=== PATIENT | male | born 1965 | race Caucasian/White ===

== ENCOUNTER 2017-02-15 10:00 | Emergency (ER) | payer OTHER ==
[2017-02-15] MEDS ORDERED: KETOROLAC 60 MG/2 ML VIAL IM STA (12:03)
[2017-02-15] MEDS ORDERED: DEXAMETHASONE 10 MG/ML VIAL PO STA (12:03)
[2017-02-15] MEDS ORDERED: CYCLOBENZAPRINE 10 MG TABLET PO STA (12:03)
[2017-02-15] MEDS ORDERED: oxyCOD/ACETAMIN 5 MG/325 MG TABLET PO STA (12:12)
--- NOTE | 2017-02-15 12:15 | ED Physician Documentation ---
PD HPI BACK PAIN - Stated complaint Stated Complaint: BACK PX - Chief complaint Chief Complaint: Back Pain - History obtained from History obtained from: Patient, Family - History of Present Illness Timing - onset: How many days ago (3) Timing - duration: Days (3) Timing - details: Gradual onset Pain level max: 8 Pain level now: 8 Location: Lower, Right Quality: Pain, Spasm, Similar to prior episodes Associated symptoms: No: Fever, Weakness, Numbness, Incontinent of urine, Unable to urinate, Hematuria, Incontinent of stool Improves with: Rest Worsened by: Movement Contributing factors: Other (states history of chronic back pain. 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 states pain started when reaching for a cheese grater) Recently seen: Not recently seen - Additional information Additional information: taking motrin without relief. Review of Systems Ten Systems: 10 systems reviewed and negative Constitutional: denies: Fever, Chills Ears: denies: Ear pain Nose: denies: Rhinorrhea / runny nose, Congestion Throat: denies: Sore throat Cardiac: denies: Chest pain / pressure Respiratory: denies: Cough GI: denies: Abdominal Pain, Nausea, Vomiting, Diarrhea Skin: denies: Rash Musculoskeletal: denies: Neck pain Neurologic: denies: Focal weakness, Numbness, Headache PD PAST MEDICAL HISTORY - Past Medical History Past Medical History: No - Past Surgical History Past Surgical History: No - Present Medications Home Medications: Ambulatory Orders Medication Instructions Recorded Confirmed Cyclobenzaprine [Flexeril] 10 mg PO TID PRN #20 tablet 02/15/17 Hydrocodone/Acetaminophen 1 - 2 each PO Q6H PRN #14 tablet 02/15/17 [Hydrocodon-Acetaminophen 5-325] Meloxicam [Mobic] 7.5 mg PO BID PRN #20 tablet 02/15/17 - Allergies Allergies/Adverse Reactions: Allergies Allergy/AdvReac Type Severity Reaction Status Date / Time No Known Drug Allergies Allergy Verified 02/15/17 10:20 - Social History Does the pt smoke?: No Smoking Status: Never smoker Does the pt drink ETOH?: Yes ETOH Use: Wine, Beer Does the pt have substance abuse?: No - Immunizations Immunizations are current?: Yes - POLST Patient has POLST: No PD ED PE NORMAL - Vitals Vital signs reviewed: Yes - General General: Alert and oriented X 3, No acute distress - HEENT HEENT: PERRL, Moist mucous membranes - Neck Neck: Supple, no meningeal sign - Cardiac Cardiac: RRR, Strong equal pulses - Respiratory Respiratory: No respiratory distress, Clear bilaterally - Abdomen Abdomen: Soft, Non tender, Non distended - Back Back: Other (no midline tenderness. Paraspinal tenderness R low lumbar. ) - Derm Derm: Warm and dry - Extremities Extremities: Other (normal bilateral lower extremity patellar and ankle jerk reflexes. Normal great toe extension bilaterally) - Neuro Neuro: Alert and oriented X 3, No motor deficit, No sensory deficit - Psych Psych: Normal mood, Normal affect Results - Vitals Vitals: Vital Signs - 24 hr 02/15/17 02/15/17 10:03 12:35 Temperature 36.3 C L 36.7 C Heart Rate 76 56 L Respiratory 20 18 Rate Blood Pressure 106/59 L 104/69 O2 Saturation 99 100 Oxygen O2 Source Room air PD MEDICAL DECISION MAKING - ED course Complexity details: re-evaluated patient, considered differential (no cauda equina, no spinal epidural abscess, no fracture, no aortic dissection or evidence of aneursym rupture), d/w patient, d/w family () ED course: Patient is a 51-year-old male who presents to the emergency department with acute on chronic back pain. He has been taking Motrin without relief at home. Given Toradol, Flexeril, Percocet and dexamethasone here. Will prescribe pain medication and muscle relaxants for home and follow-up with his doctor. No IV drug use. No evidence of epidural abscess. No evidence of fracture. No evidence of cauda equina. Patient counseled regarding signs and symptoms for which I believe and urgent re-evaluation would be necessary. Patient with good understanding of and agreement to plan and is comfortable going home at this time This document was made in part using voice recognition software. While efforts are made to proofread this document, sound alike and grammatical errors may occur. Departure - Departure Disposition: Home, Self Care Clinical Impression: Low back strain Qualifiers: Encounter type: initial encounter Qualified Code(s): S39.012A - Strain of muscle, fascia and tendon of lower back, initial encounter Condition: Good Instructions: ED Sprain Strain Lumbar Follow-Up: Faisal Miranda MD [Primary Care Provider] - Within 1 week Prescriptions: Cyclobenzaprine [Flexeril] 10 mg PO TID PRN #20 tablet PRN Reason: Spasms Hydrocodone/Acetaminophen [Hydrocodon-Acetaminophen 5-325] 1 - 2 each PO Q6H PRN #14 tablet PRN Reason: pain Meloxicam [Mobic] 7.5 mg PO BID PRN #20 tablet PRN Reason: Pain Comments: Continue the medications at home. Return if you worsen. This should improve over the next few days. You can use ice or heat as needed as well. Do not drink alcohol or drive while on narcotic pain medicine. Note that many narcotic pain relievers also contain tylenol/acetaminophen. Please ensure that your total dose of acetaminophen from all sources does not exceed 3 grams (3000mg) per day. You may constipated on this medication, take a stool softener such as "Colace" twice a day while you are on it. Also recommend a [id number] laxative such as senna or MiraLAX any day that you do not have a bowel movement. If you received narcotic pain medication in the emergency department, do not drive or operate machinery for the next 24 hours. Discharge Date/Time: 02/15/17 12:47
[2017-02-15 12:36] VITALS: BP 104/69
== END 2017-02-15 12:47 | disposition home or self-care (01) ==
LOC: ED 10:00
DX: S39.012A Strain of muscle, fascia and tendon of lower back, initial encounter (principal); X50.9XXA Other and unspecified overexertion or strenuous movements or postures, initial encounter
CPT/HCPCS: 96372; 99283; A9270

== ENCOUNTER 2017-02-17 15:02 | Outpatient (CLI) | payer OTHER | END 2017-02-17 15:03 | disposition home or self-care (01) | LOC: LAB.WCP 15:02 | PROVIDERS: ATTEND Family Medicine | DX: Z12.5 Encounter for screening for malignant neoplasm of prostate (principal) | CPT/HCPCS: 36415; 84153 ==

== ENCOUNTER 2017-08-17 12:58 | Day surgery (SDC) | payer OTHER ==
[2017-08-17] MEDS ORDERED: LACTATED RINGERS 1,000 ML IV ONE ×2 (13:09→16:07)
[2017-08-17] MEDS ORDERED: MIDAZOLAM 2 MG/2 ML VIAL IVP ONE (15:31)
[2017-08-17] MEDS ORDERED: fentaNYL 250 MCG/5 ML VIAL IVP ONE (15:31)
[2017-08-17 16:21] VITALS: BP 108/59
== END 2017-08-17 12:59 | disposition home or self-care (01) ==
LOC: SDS 12:58
PROVIDERS: ATTEND Surgery
PROC: 0DJD8ZZ Inspection of Lower Intestinal Tract, Via Natural or Artificial Opening Endoscopic (ICD-10-PCS; principal; 2017-08-17 15:00)
DX: Z12.11 Encounter for screening for malignant neoplasm of colon (principal); Z87.891 Personal history of nicotine dependence
CPT/HCPCS: 45378; J3010; J7120

== ENCOUNTER 2019-02-24 11:55 | Outpatient (CLI) | payer OTHER ==
--- NOTE | 2019-02-24 13:13 | XRAY Report ---
Reason: SEGMENTAL AND SOMATIC DYSFUNCTION OF [place]CR[place] REGION Procedure Date: 02/24/2019 Accession Number: [id number] / [id number] Procedure: XR - Lumbar Spine 2 View CPT Code: Final Report FULL RESULT: EXAM: LUMBOSACRAL SPINE RADIOGRAPHY EXAM DATE: 02/24/2019 12:41 PM. CLINICAL HISTORY: SEGMENTAL AND SOMATIC DYSFUNCTION OF [place] REGION. COMPARISONS: None. TECHNIQUE: 2 views. FINDINGS: Alignment: No significant spondylolisthesis or scoliosis. Bones: No fracture or bone lesion. 5 elu-zqk-paflqsm lumbar elements present. Disks: No significant disk space loss evident. Small anterior and lateral osteophytes developing at the L1-L4 levels. Facets: No degenerative changes. Sacroiliac Joints: Unremarkable. Soft Tissues: Normal. The visualized bowel gas pattern is normal. IMPRESSION: 1. Early L1-L4 degenerative disk disease without disk space loss. 2. No fracture or bone lesion. RADIA
== END 2019-02-24 11:56 | disposition home or self-care (01) ==
LOC: DI 11:55
PROVIDERS: ATTEND Chiropractor
DX: M51.36 Other intervertebral disc degeneration, lumbar region (principal)
CPT/HCPCS: 72100

== ENCOUNTER 2019-08-23 08:31 | Emergency (ER) | payer OTHER ==
[2019-08-23 08:43] VITALS: BP 123/65
--- NOTE | 2019-08-23 09:06 | ED Physician Documentation ---
PD HPI UPPER EXT INJURY - Stated complaint Stated Complaint: R HAND INJURY - Chief complaint Chief Complaint: Ext Problem - History obtained from History obtained from: Patient, Family - History of Present Illness Location: Right, Hand Type of injury: Puncture wound Where injury occurred: Work Timing - onset: How many days ago (2) Timing - duration: Days (2) Timing - details: Abrupt onset, Still present Improved by: Rest, Immobilization Worsened by: Moving, Palpating Associated symptoms: Swelling. No: Weakness, Numbness, Tingling, Discolored Similar symptoms before: Has not had sx before Recently seen: Clinic Review of Systems Constitutional: denies: Fever, Chills, Myalgias, Fatigue Eyes: denies: Decreased vision Ears: denies: Ear pain Nose: denies: Congestion Throat: denies: Sore throat Respiratory: denies: Dyspnea, Cough GI: denies: Vomiting Musculoskeletal: reports: Extremity pain, Extremity swelling. denies: Neck pain, Back pain Neurologic: denies: Generalized weakness, Focal weakness, Numbness PD PAST MEDICAL HISTORY - Past Medical History Cardiovascular: None Respiratory: None Endocrine/Autoimmune: None GI: None : None HEENT: None Psych: None Musculoskeletal: None Derm: None - Past Surgical History Past Surgical History: Yes General: EGD - Present Medications Home Medications: Ambulatory Orders Medication Instructions Recorded Confirmed Amoxicillin 500 mg PO 08/23/19 Sulfamethoxazole/Trimethoprim 1 each PO BID #14 tablet 08/23/19 [Sulfamethoxazole-Tmp Ds Tablet] - Allergies Allergies/Adverse Reactions: Allergies Allergy/AdvReac Type Severity Reaction Status Date / Time No Known Drug Allergies Allergy Verified 08/23/19 08:43 - Social History Does the pt smoke?: No Smoking Status: Never smoker Does the pt drink ETOH?: Yes Does the pt have substance abuse?: No - Immunizations Immunizations are current?: Yes - POLST Patient has POLST: No PD ED PE NORMAL - Vitals Vital signs reviewed: Yes (normal afebrile ) - General General: Alert and oriented X 3, No acute distress, Well developed/nourished - HEENT HEENT: Atraumatic, PERRL, EOMI - Respiratory Respiratory: No respiratory distress - Derm Derm: Normal color, Warm and dry, No rash - Extremities Extremities: Other (The right hand is swollen uniformly. There is swelling and tenderness extending into the volar forearm. There is no discoloration of the skin. There is a puncture wound without drainage over the proximal 4th MC. The patient is able to make a fist without significant pain. Limited by swelling. 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 # (Auto) 0.6 Eos # (Auto) 0.1 Baso # (Auto) 0.0 Absolute Nucleated RBC 0.00 Nucleated RBC % 0.0 ESR 7 Sodium 128 L Potassium 3.9 Chloride 96 L Carbon Dioxide 23 Anion Gap 9.0 BUN 9 Creatinine 0.7 Estimated GFR (MDRD) 118 Glucose 101 H Calcium 8.5 Total Bilirubin 1.2 H AST 32 ALT 24 Alkaline Phosphatase 45 C-React Prot High Sens 35.3 Total Protein 7.0 Albumin 4.5 Globulin 2.5 Albumin/Globulin Ratio 1.8 Lipase 35 - Rads (name of study) hand Radiology: Prelim report reviewed (Pression: 1. No fracture or metallic foreign bodies. Smaller linear density projecting over the dorsal soft tissues at the level of the metacarpal shafts on the lateral projection of indeterminate clinical significance. Recommend correlation with clinical exam.), EMP read indepedently, See rad report Procedures - Bedside sono Bedside sono by EMP: With use of bedside ultrasound the palm of the right hand is examined and I am not finding a pocket of fluid there are blood vessels identified that are compressible and nothing that appears consistent with an abscess. The hand is swollen and I am not finding the typical flowing septations associated with cellulitis. PD MEDICAL DECISION MAKING - ED course Complexity details: reviewed old records, reviewed results, re-evaluated patient, considered differential, d/w patient, d/w family ED course: 53-year-old male with a puncture wound to the palm of the hand and increased swelling over the past 2 days is being treated for infection with Augmentin after getting a shot of Rocephin. He did not have the expected improvement overnight and was sent here for evaluation. I have examined the patient he is able to make a fist and my concern for tenosynovitis that is low. I initially thought his swelling may be due entirely to dispersed hematoma. An x-ray was obtained as well as blood work. His WBC is normal, the ESR is normal but the CRP is elevated and markedly. I was not able to ignor this and the patient was administered IV vancomycin and we will start him on septra in addition to the augmentin. He does not feel ill and wants to travel and I have advised him to stop at a referral hospital to see a hand surgeon on his travels if he has worsening instead of resolution. I was not able to find a pocket of pus with the bedside ultrasound. Departure - Departure Disposition: Home, Self Care Clinical Impression: Puncture wound of right hand with infection Qualifiers: Encounter type: initial encounter Qualified Code(s): S61.431A - Puncture wound without foreign body of right hand, initial encounter; L08.9 - Local infection of the skin and subcutaneous tissue, unspecified Condition: Stable Instructions: ED Staph Infec Abx Tx Only Follow-Up: Guerrero Shaikh MD [Primary Care Provider] - Prescriptions: Sulfamethoxazole/Trimethoprim [Sulfamethoxazole-Tmp Ds Tablet] 1 each PO BID #14 tablet Comments: Today we were not able to rule out an infection in your hand. We have started you on a second antibiotic and the expectation is improved improvement in the swelling day by day. If your hand worsens and you are unable to close your fingers, or make a fist, follow-up with a referral hospital to see a hand surgeon. This may need drainage. Today we are not able to find any area that is amenable to drainage.
[2019-08-23 09:17] LABS: BASOPHILS % (AUTO) 0.6 %; EOSINOPHILS # (AUTO) 0.1 10^3/uL (0.0-0.7); LYMPHOCYTES # (AUTO) 0.9 10^3/uL (1.5-3.5); LYMPHOCYTES % (AUTO) 18.4 %; MEAN CORPUSCULAR HEMOGLOBIN 31.9 pg (27.0-31.0); MEAN CORPUSCULAR HGB CONC 34.9 g/dL (32.0-36.0); MEAN CORPUSCULAR VOLUME 91.2 fL (80.0-94.0); MEAN PLATELET VOLUME 8.6 fL (7.4-11.4); MONOCYTES # (AUTO) 0.6 10^3/uL (0.0-1.0); MONOCYTES % (AUTO) 11.8 %; NEUTROPHILS # (AUTO) 3.4 10^3/uL (1.5-6.6); PLT - PLATELET COUNT 235 10^3/uL (130-450); RED BLOOD COUNT 4.08 10^6/uL (4.70-6.10); RED CELL DISTRIBUTION WIDTH 11.8 % (12.0-15.0)
[2019-08-23 09:31] LABS: ALBUMIN 4.5 g/dL (3.2-5.5); ALBUMIN/GLOBULIN RATIO 1.8 (1.0-2.2); BILIRUBIN,TOTAL 1.2 mg/dL (0.2-1.0); CALCIUM 8.5 mg/dL (8.5-10.3); CREATININE 0.7 mg/dL (0.6-1.2); CRP HIGH SENSITIVITY 35.3 mg/L
--- NOTE | 2019-08-23 09:46 | XRAY Report ---
PROCEDURE: Hand 3 View RT INDICATIONS: Puncture wound with nail with swelling 4th prox MC TECHNIQUE: 3 views of the right hand acquired. COMPARISON: None. FINDINGS: Bones: No fractures or dislocations. No suspicious bony lesions. Soft tissues: No metallic foreign bodies. There is a small linear density measuring approximately 2 mm projecting over the dorsal soft tissues on the lateral view of indeterminate etiology. No definite soft tissue gas. IMPRESSION: 1. No fracture or metallic foreign bodies. 2. Small linear density projecting over the dorsal soft tissues at the level of the metacarpal shafts on the lateral projection of indeterminate clinical significance. Recommend correlation with clinica l exam. Reviewed by: Evgeny Sullivan MD on 08/23/2019 9:45 AM PDT Approved by: Evgeny Sullivan MD on 08/23/2019 9:45 AM PDT Station ID: [id number]
[2019-08-23] MEDS ORDERED: VANCOMYCIN INJ 1 GM in SODIUM CHLORIDE 0.9% 500 ML IV STA (10:15)
== END 2019-08-23 13:00 | disposition home or self-care (01) ==
LOC: ED 08:31
DX: S61.431A Puncture wound without foreign body of right hand, initial encounter (principal); L08.9 Local infection of the skin and subcutaneous tissue, unspecified; W45.0XXA Nail entering through skin, initial encounter; Y99.0 Civilian activity done for income or pay
CPT/HCPCS: 36415; 73130; 80053; 83690; 85025; 85651; 86141; 96365; 96366; 99284; J3370

== ENCOUNTER 2021-04-02 08:00 | Outpatient (CLI) | payer OTHER | END 2021-04-02 23:59 | LOC: LAB.N 08:00 | PROVIDERS: ATTEND Physician Assistant Medical | DX: R05.9 Cough, unspecified (principal); Z20.822 Contact with and (suspected) exposure to COVID-19 ==

== ENCOUNTER 2021-12-31 08:00 | Outpatient (CLI) | payer OTHER | END 2021-12-31 23:59 | disposition home or self-care (01) | LOC: LAB.N 08:00 | PROVIDERS: ATTEND Physician Assistant | DX: N30.00 Acute cystitis without hematuria (principal) | CPT/HCPCS: 87086 ==

== ENCOUNTER 2022-10-22 07:04 | Outpatient (CLI) | payer OTHER ==
[2022-10-22 12:15] LABS: BASOPHILS % (AUTO) 0.5 %; EOSINOPHILS # (AUTO) 0.1 10^3/uL (0.0-0.7); EOSINOPHILS % (AUTO) 1.4 %; HGB - HEMOGLOBIN 14.1 g/dL (14.0-18.0); LYMPHOCYTES # (AUTO) 1.4 10^3/uL (1.5-3.5); LYMPHOCYTES % (AUTO) 32.8 %; MEAN CORPUSCULAR HEMOGLOBIN 31.1 pg (27.0-31.0); MEAN CORPUSCULAR HGB CONC 33.6 g/dL (32.0-36.0); MEAN CORPUSCULAR VOLUME 92.7 fL (80.0-94.0); MEAN PLATELET VOLUME 8.9 fL (7.4-11.4); MONOCYTES # (AUTO) 0.6 10^3/uL (0.0-1.0); MONOCYTES % (AUTO) 13.3 %; NEUTROPHILS # (AUTO) 2.2 10^3/uL (1.5-6.6); NEUTROPHILS % (AUTO) 51.8 %; PLT - PLATELET COUNT 262 10^3/uL (130-450); RED BLOOD COUNT 4.53 10^6/uL (4.70-6.10); WHITE BLOOD COUNT 4.2 x10^3/uL (4.8-10.8)
[2022-10-22 13:15] LABS: ALBUMIN 4.4 g/dL (3.2-5.5); ALKALINE PHOSPHATASE 67 IU/L (42-121); ALT ALANINE AMINOTRANSFERASE 22 IU/L (10-60); AST ASPARTATE AMINOTRANSFERASE 24 IU/L (10-42); BUN - BLOOD UREA NITROGEN 10 mg/dL (6-20); CALCIUM 9.3 mg/dL (8.5-10.3); CARBON DIOXIDE - CO2 29 mmol/L (21-32); CHLORIDE 98 mmol/L (101-111); CHOL/HDL RATIO 3.2 (<5.0); CHOLESTEROL 197 mg/dL; CREATININE 0.8 mg/dL (0.6-1.3); GFR - MDRD 100 (>89); GLUCOSE 100 mg/dL (74-104); HDL CHOLESTEROL 61 mg/dL; LDL CHOLESTEROL,CALCULATED 115 mg/dL; LDL/HDL RATIO 1.9 (<3.6); POTASSIUM 4.2 mmol/L (3.5-4.5); SODIUM 131 mmol/L (135-145); THYROID STIMULATING HORMONE 1.13 uIU/mL (0.34-5.60); TOTAL PROTEIN 6.6 g/dL (6.4-8.9); TRIGLYCERIDES 103 mg/dL (48-352); VLDL CHOLESTEROL 21 mg/dL
== END 2022-10-22 07:05 | disposition home or self-care (01) ==
LOC: LAB.N 07:04
PROVIDERS: ATTEND Physician Assistant Medical
DX: Z00.00 Encounter for general adult medical examination without abnormal findings (principal); R53.83 Other fatigue; Z12.5 Encounter for screening for malignant neoplasm of prostate
CPT/HCPCS: 36415; 80053; 80061; 82306; 82607; 83721; 84153; 84443; 85025